=== PATIENT | female | born 1945 | race Caucasian/White ===

== ENCOUNTER → 2018-02-10 | Day surgery (SDC) | payer OTHER ==
[~2018-02-10] VITALS: Ht 160 cm; Wt 68.5 kg
[~2018-02-10] MED LIST: CALCIUM 500 +1 EAC5 PO; COD LIVER OIL473 ML PO; GLUCOSAMINE &1 EAC1 PO; SPIRONOLACTONE25 M1 PO; SYNTHROID75 MCG PO; ZOCOR20 M1 PO
--- NOTE | 2018-02-10 11:09 | Operative Report ---
Operative/Inv Procedure Report Surgery Date: 02/10/18 Name of Procedure: Right partial mastectomy and sentinel node biopsy Pre-Operative Diagnosis: Right breast cancer Post-Operative Diagnosis: Same Estimated Blood Loss: less than 50ml Surgeon/Manager Hospital: Sonia Rowe MD Anesthesia: laryngeal mask airway Specimens: Right lumpectomy, cranial margin, lateral margin, medial margin, sentinel lymph node Operative/Procedure Note Note: Patient has a palpable breast cancer at 8:00 in the right breast. This was confirmed on needle biopsy. She is clinically node negative, clinical stage I. She brought to the operating room for partial mastectomy and sentinel lymph node biopsy. Preoperative lymphoscintigraphy was performed and those films reviewed. She is brought to the operating room and placed under anesthesia. 2 g of Ancef was given and the right breast and axilla were prepped and draped in a sterile fashion using ChloraPrep. 3 mL of methylene blue diluted with 2 mL of saline was injected in the retroareolar fashion. The axilla was approached first. Marcaine was given to anesthetize the skin and a transverse incision was made. Subcutaneous tissue and clavipectoral fascia was entered. The axilla was ordered and there was a single hot lymph node identified. There were no other hot, blue, or palpable lymph nodes in the axilla. This was sent as sentinel lymph node. The axilla demonstrated adequate hemostasis and the clavipectoral fascia was closed followed by the skin using Biosyn subcutaneous color stitch as. The breast was then approached. Marcaine was given and an inframammary incision was made. Tissue was dissected above the palpable lesion in the subcutaneous plane. A generous lumpectomy was performed. This marked for orientation using margin map. The dissection went from the subcutaneous tissue anteriorly to the pectoralis fascia posteriorly additional margins were taken in the cranial, medial, and lateral positions. The caudal margin is the inframammary fold. Hemostasis adequate and the margins a lumpectomy were marked using mammary clips deep tissue was mobilized approximated using Vicryl sutures and the skin was closed using running Biosyn subcuticular stitch. Steri-Strips and sterile dressings were applied and patient transferred to the recovery room in satisfactory condition having tolerated she did well.
== END ==
LOC: STS 01:08
DX: C50.811 Malignant neoplasm of overlapping sites of right female breast (principal); Z17.1 Estrogen receptor negative status [ER-]; I10 Essential (primary) hypertension; E03.9 Hypothyroidism, unspecified; M19.90 Unspecified osteoarthritis, unspecified site
CPT/HCPCS: J0131; J0690; J1100; J1885; J2250; J2405; J3490; Q9968